=== PATIENT | male | born 1985 | race Caucasian/White ===

== ENCOUNTER 2019-10-14 08:30 | Emergency (ER) | payer OTHER, SELFPAY ==
[2019-10-14 08:45] VITALS: BP 133/81; PULSE 69; RESP 16; TEMP 37.1; O2SAT 99
--- NOTE | 2019-10-14 08:51 | ED.GENADULT ---
HPI - General Adult General Stated complaint: Sore Throat Time Seen by Provider: 10/14/19 09:00 Source: patient Mode of arrival: ambulatory Limitations: no limitations Related Data Home Medications Medication Instructions Recorded Confirmed pravastatin 10 mg PO DAILY 10/14/19 10/14/19 Allergies Allergy/AdvReac Type Severity Reaction Status Date / Time No Known Allergies Allergy Verified 10/14/19 09:04 Review of Systems Review of Systems: Narrative: CONSTITUTIONAL: Denies fever, chills, or sweats. EYES: Denies visual changes, redness, or discharge. ENT: Denies rhinorrhea, congestion, sore throat, or otalgia. CARDIOVASCULAR: Denies chest pain, palpitations, or edema. RESPIRATORY: Denies cough or dyspnea. GASTROINTESTINAL: Denies abdominal pain, nausea, vomiting, or diarrhea. GENITOURINARY: Denies dysuria or hematuria. SKIN: Denies rash or itching. MUSCULOSKELETAL: Denies back pain, joint pain, or myalgia. NEUROLOGIC: Denies headache, numbness, or weakness. PSYCHIATRIC: Denies anxiety or depression. PMFSH Comments At the time of my signature I agree with nursing past medical history, surgical, social, and family history. There is no relevant family history pertinent to the presenting complaint. Exam Narrative: Exam Narrative: GENERAL: Well-appearing, well-nourished, and in no acute distress. HEAD: Normocephalic, atraumatic. EYES: PERRLA and EOMI. ENT: Nares clear, no rhinorrhea or epistaxis. Mucous membranes moist. NECK: Supple. No lymphadenopathy CHEST: Clear to auscultation. No respiratory distress. HEART: Regular rate and rhythm. No murmur heard. Normal peripheral pulses. ABDOMEN: Soft, nontender, nondistended, normal active bowel sounds. EXTREMITIES: Normal range of motion. No edema. SKIN: Warm, dry, no rash. NEURO: No focal deficits. Alert and oriented x3. Course Vital Signs Vital signs: Vital Signs Temperature 37.1 C 10/14/19 08:45 Pulse Rate 69 10/14/19 08:45 Respiratory Rate 16 10/14/19 08:45 Blood Pressure 133/81 10/14/19 08:45 Pulse Oximetry 99 10/14/19 08:45 Temperature 37.1 C 10/14/19 08:45 Pulse Rate 69 10/14/19 08:45 Respiratory Rate 16 10/14/19 08:45 Blood Pressure 133/81 10/14/19 08:45 Pulse Oximetry 99 10/14/19 08:45 Vital signs reviewed. The patient has been informed that they may have pre-hypertension or Hypertension based on a BP reading in the department. I recommend that the patient call the primary care provider listed on their discharge instructions or a physician of their choice this week to arrange follow up for further evaluation of possible pre-hypertension or Hypertension Medical Decision Making Differential Diagnosis Differential Diagnosis: Differential diagnosis: Allergic rhinitis, chronic sinusitis, tonsillitis, acute sinusitis, infectious mononucleosis, seasonal influenza, pertussis, diphtheria, meningococcal disease, viral syndrome, viral bronchitis, RSV. Viral pharyngitis, pharyngitis, group A strep, infectious mononucleosis, gonococcal pharyngitis, exudative pharyngitis, oral candidiasis. Chronic allergies, postnasal drip, GERD, abscess formation, but glottitis, retropharyngeal abscess formation, or airway obstruction. Vital Signs Vital Signs: Vital Signs Temperature 37.1 C 10/14/19 08:45 Pulse Rate 69 10/14/19 08:45 Respiratory Rate 16 10/14/19 08:45 Blood Pressure 133/81 10/14/19 08:45 Pulse Oximetry 99 10/14/19 08:45 Temperature 37.1 C 10/14/19 08:45 Pulse Rate 69 10/14/19 08:45 Respiratory Rate 16 10/14/19 08:45 Blood Pressure 133/81 10/14/19 08:45 Pulse Oximetry 99 10/14/19 08:45 Lab Data Labs: Strep Screen Presumptive Negative *(Reference Range: Negative)* Critical Care Time Critical Care Time Critical Care Time: No Discharge Plan Discharge Clinical Impression: Pharyngitis Patient Disposition: Home, Self-Care Condition: Stable Instru
== END 2019-10-14 09:07 | disposition home or self-care (01) ==
PROVIDERS: Emergency Provider Nurse Practitioner Family
DX: J02.9 Acute pharyngitis, unspecified (principal)
CPT/HCPCS: 87081; 87880; 99203; G0463

== ENCOUNTER 2020-11-11 14:00 | Outpatient (CLI) | payer BC, SELFPAY | END 2020-11-11 14:01 | disposition home or self-care (01) | LOC: ANHCOVIDVC 14:00 | PROVIDERS: PCP Family Medicine | DX: Z23 Encounter for immunization (principal) | CPT/HCPCS: 0001A; 91300 ==

== ENCOUNTER 2020-12-02 14:01 | Outpatient (CLI) | payer BC, SELFPAY | END 2020-12-02 14:02 | disposition home or self-care (01) | LOC: ANHCOVIDVC 14:01 | PROVIDERS: PCP Family Medicine | DX: Z23 Encounter for immunization (principal) | CPT/HCPCS: 0002A; 91300 ==

== ENCOUNTER 2022-10-09 10:24 | Outpatient (CLI) | payer BC, SELFPAY ==
--- NOTE | ~2022-10-09 | XR_ITS ---
EXAMINATION: XR chest 2V DATE: 10/09/2022 10:36 INDICATION: Cough TECHNIQUE: PA and lateral views of the chest are obtained. COMPARISON: None available FINDINGS: The lungs are free of acute opacities. No pleural effusion or pneumothorax. The cardiomedia stinal silhouette is normal. The visualized bones and soft tissues are unremarkable. IMPRESSION: 1. No acute cardiopulmonary abnormality. Reviewed, dictated and finalized at location [facility]. [facility]
== END 2022-10-09 10:25 | disposition home or self-care (01) ==
PROVIDERS: PCP Family Medicine; Visit Provider Physician Assistant
DX: R05.9 Cough, unspecified (principal); R06.02 Shortness of breath
CPT/HCPCS: 71046